=== PATIENT | female | born 1975 | race Caucasian/White ===

== ENCOUNTER 2019-02-04 04:41 | Emergency (ER) | payer MEDICAID ==
[~2019-02-04] VITALS: Ht 149.9 cm; Wt 93.0 kg
[2019-02-04] MEDS ORDERED: DIPHENHYDRAMINE 50MG/ML VIAL IV ONE (05:15)
[2019-02-04] MEDS ORDERED: EPINEPHRINE 1:1000 1 MG/ML AMP IM ONE (05:15)
[2019-02-04] MEDS ORDERED: FAMOTIDINE 20MG TABLET PO ONE (05:15)
[2019-02-04] MEDS ORDERED: PREDNISONE 20MG TABLET PO ONE (05:15)
[2019-02-04 09:06] VITALS: BP 114/72
== END 2019-02-04 09:35 | disposition home or self-care (01) ==
LOC: ER 04:41
DX: T78.40XA Allergy, unspecified, initial encounter (principal); X58.XXXA Exposure to other specified factors, initial encounter; Z87.891 Personal history of nicotine dependence
CPT/HCPCS: 96372; 96374; 99283; J1200; J3490; J7512; Z7610

== ENCOUNTER 2023-09-24 08:07 | Emergency (ER) | payer MEDICAID ==
[~2023-09-24] VITALS: Ht 165.1 cm; Wt 91.0 kg
[2023-09-24 08:19] VITALS: O2SAT 95
[2023-09-24] MEDS ORDERED: LORATADINE 10MG TABLET PO STA (08:38)
[2023-09-24] MEDS ORDERED: DEXAMETHASONE 2MG TABLET PO ONE (08:45)
[2023-09-24] MEDS ORDERED: FAMOTIDINE 20MG TABLET PO ONE (08:45)
[2023-09-24] MEDS ORDERED: DEXAMETHASONE 4MG TABLET PO NR (09:00)
[2023-09-24 10:12] VITALS: BP 124/70; PULSE 97; RESP 16; TEMP 99.8
== END 2023-09-24 10:14 | disposition home or self-care (01) ==
LOC: ER 08:07
DX: K13.0 Diseases of lips (principal)
CPT/HCPCS: 99284; J8540